=== PATIENT | male | born 1960 | race Caucasian/White ===

== ENCOUNTER 2020-09-19 19:23 | Emergency (ER) | payer SELFPAY ==
[2020-09-19 19:37] VITALS: BP 178/101
[2020-09-19] MEDS ORDERED: DIPH/PERTUSS(ACELL)/TETANUS VAC/PF 0.5 ML SYR (>=10YO) IM ONE (20:35)
--- NOTE | 2020-09-19 20:42 | ER Document Report ---
ED Medical Screen (RME) - General Stated Complaint: HEAD LACERATION Time Seen by Provider: 09/19/20 20:29 Notes: Patient is a 60-year-old male who presents emergency department with a laceration to the left side of his head. Patient had been drinking tonight. Said he hit his head on a TV and then he states he fell to his knees. Denies any knee pain. States that he does not know when his last tetanus shot was. Exam: Laceration noted to the left side of head. Nontender bilateral knees. I have greeted and performed a rapid initial assessment of this patient. A comprehensive ED assessment and evaluation of the patient, analysis of test results and completion of medical decision making process will be conducted by an additional ED providers. Physical Exam - Vital signs Vitals: Temp Pulse Resp BP Pulse Ox 97.4 F 87 17 178/101 H 99 09/19/20 19:36 09/19/20 19:36 09/19/20 19:36 09/19/20 19:36 09/19/20 19:36 Course - Vital Signs Vital signs: Temp Pulse Resp BP Pulse Ox 97.4 F 87 17 178/101 H 99 09/19/20 19:36 09/19/20 19:36 09/19/20 19:36 09/19/20 19:36 09/19/20 19:36
--- NOTE | 2020-09-19 21:41 | RADIOLOGY REPORT (SQ) ---
EXAM DESCRIPTION: CT HEAD WITHOUT CLINICAL HISTORY: 60 years Male fall head laceration TECHNIQUE: Noncontrast CT head. All CT scans at this facility use dose modulation, iterative reconstruction, and/or weight based dosing when appropriate to reduce radiation dose to as low as reasonably achievable. COMPARISON: None. FINDINGS: Alexander matter, white matter, ventricles, and cisterns are within normal limits. No acute hemorrhage or mass effect. Visualized portions of paranasal sinuses demonstrate scattered mucosal thickening. The mastoids are clear. Visualized portions of the calvarium are within normal limits. IMPRESSION: 1. No acute intracranial findings.
--- NOTE | 2020-09-19 21:48 | ER Document Report ---
ED General - General Chief Complaint: Laceration Stated Complaint: HEAD LACERATION Time Seen by Provider: 09/19/20 20:29 Notes: Patient is a 60-year-old male who presents emergency department with a laceration to the left side of his head. Patient had been drinking tonight. Said he hit his head on a TV and then he states he fell to his knees. Denies any knee pain. States that he does not know when his last tetanus shot was. Past Medical History - General Information source: Patient - Social History Smoking Status: Current Every Day Smoker Frequency of alcohol use: Heavy Drug Abuse: None Family History: Reviewed & Not Pertinent Patient has homicidal ideation: No Review of Systems - Review of Systems Notes: REVIEW OF SYSTEMS: CONSTITUTIONAL : Denies recent illness. Denies recent unintentional weight loss. Denies fever, chills, or sweats. EENT: Denies eye, ear, throat, or mouth pain, discharge, or symptoms. Denies nasal or sinus congestion. CARDIOVASCULAR: Denies chest pain. RESPIRATORY: Denies shortness of breath, cough, congestion, difficulty breathing, or wheezing. GASTROINTESTINAL: Denies nausea, vomiting, and diarrhea. Denies abdominal pain. Denies constipation. GENITOURINARY: Denies difficulty urinating, burning, blood in urine, urgency or frequency. MUSCULOSKELETAL: Denies neck and back pain. Denies joint pain or swelling. SKIN: See HPI. HEMATOLOGIC : Denies easy bruising or bleeding. LYMPHATIC: Denies swollen, painful, enlarged glands. NEUROLOGICAL: Denies no numbness or tingling denies weakness. Denies headache. Denies altered mental status. Denies alteration in speech. PSYCHIATRIC: Denies stress, anxiety, alteration in sleep patterns, or depression. All other systems reviewed and negative. Physical Exam - Vital signs Vitals: Temp Pulse Resp BP Pulse Ox 97.4 F 87 17 178/101 H 99 09/19/20 19:36 09/19/20 19:36 09/19/20 19:36 09/19/20 19:36 09/19/20 19:36 - Notes Notes: PHYSICAL EXAMINATION: GENERAL: Appears well, healthy, well-nourished, no acute distress. HEAD: Normocephalic, 2.5 cm laceration noted to left forehead near hairline. EYES: PERRL, conjunctiva normal, all extraocular movements intact, sclera nonicteric ENT: Moist mucous membranes. NECK: Supple, no noticeable swelling, redness, rash. Normal range of motion. LUNGS: Equal breath sounds bilaterally and clear to auscultation. No wheezes rales or rhonchi. CARDIOVASCULAR: S1-S2, regular rate, regular rhythm. Radial pulses 2+, normal. ABDOMEN: Normoactive bowel sounds. Soft, nontender, no guarding, no rebound tenderness, and no masses palpated. EXTREMITIES: Normal strength and range of motion, no pitting or edema. No cyanosis. NEUROLOGICAL: Moves all extremities upon command. Strength 5/5 in all extremities. PSYCH: Normal mood, normal affect. SKIN: Warm, dry. No rash, ulcerations noted. Normal skin turgor. See HEAD documentation. Course - Re-evaluation Re-evalutation: 09/19/20 CT of the head was unremarkable. No neurological deficits noted. Laceration edges are well approximated and no need for repair at this time. I cleaned the area with Shur-Clens and water. Patient tolerated procedure well. He received his tetanus vaccine. Have a low suspicion for any life-threatening etiology at this time. He will follow-up with regular doctor as needed. Follow-up precautions were given. Verbal discharge instructions were given to the patient. They verbalized understanding. They are stable for discharge. - Vital Signs Vital signs: Temp Pulse Resp BP Pulse Ox 97.4 F 87 17 178/101 H 99 09/19/20 19:36 09/19/20 19:36 09/19/20 19:36 09/19/20 19:36 09/19/20 19:36 Discharge - Discharge Clinical Impression: Laceration of head Qualifiers: Encounter type: initial encounter Location of open wound of head: scalp Foreign body presence: without foreign body Qualified Code(s): S01.01XA - Laceration without foreign body of scalp, initial encounter Condition: Stable Disposition: HOME, SELF-CARE Instructions: Tetanus Immunization Given ([facility]) Additional Instructions: You were seen today in the emergency department after hitting your head on a TV. Your CT was normal. You can take Tylenol 1000 mg every 6 hours. This is safe to take for any headache. Return if you have any of these symptoms. (1) Mental confusion (2) Incoordination or staggering (3) Repeated or forceful vomiting (4) Clear or bloody drainage from ear, mouth, or nose (5) Severe headache, not relieved by acetaminophen or prescribed pain medication (6) Failure to improve in 24 hours Apply triple antibiotic ointment to your laceration to help with healing.
== END 2020-09-19 21:58 | disposition home or self-care (01) ==
LOC: ER 19:23
DX: S01.01XA Laceration without foreign body of scalp, initial encounter (principal); W22.09XA Striking against other stationary object, initial encounter; Z23 Encounter for immunization
CPT/HCPCS: 70450; 90471; 90715; 99284